=== PATIENT | male | born 1945 | race Caucasian/White ===

== ENCOUNTER 2016-12-25 16:32 | Inpatient (IN) | payer MEDICARE ==
[~2016-12-25 16:32] MED LIST: Sodium Chloride 0.9% 1,000 ML BAG ONE
[2016-12-25 17:21] LABS: #Basophils 0.1 thou/uL (0.0-0.2); #Eosinphils 0.9 thou/uL (0.0-0.7); #Lymphocytes 2.3 thou/uL (1.20-3.40); #Monocytes 0.6 thou/uL (0.11-0.59); #Neutrophils 5.5 thou/uL (1.40-6.50); %Basophils 0.8 % (0.0-1.0); %Eosinophils 9.9 % (0.0-10.0); %Lymphocytes 24.4 % (21.0-51.0); %Monocytes 6.3 % (0.0-10.0); %Neutrophils 58.6 % (42.0-75.0); Hemoglobin 14.6 g/dL (14.0-18.0); Mean Corpuscular HGB CONC 33.9 g/dL (32.0-36.0); Mean Corpuscular Hemoglobin 30.2 pg (27.0-31.0); Mean Corpuscular Volume 88.9 fl (80.0-94.0); Mean Platelet Volume 9.4 fL (7.4-10.4); Platelet Count 196 thou/uL (130-400); RBC Distribution Width 11.1 % (11.5-14.5); Red Blood Cell (RBC) Count 4.82 mill/uL (4.70-6.10); White Blood Cell (WBC) Count 9.3 thou/uL (4.8-10.8)
[2016-12-25 17:29] LABS: Bilirubin Small (Negative); Blood, Urine Trace (Negative); Clarity Clear (Clear); Glucose, Urine (Dipstick) Negative (Negative); Leukocyte Negative (Negative); Nitrite Negative (Negative); Protein, Urine (Dipstick) 30 mg/dL (Neg-Trace); Urobilinogen 0.2 mg/dL (0.2-1.0); pH, Urine 5.5 (5.0-9.0)
[2016-12-25 17:31] LABS: Specific Gravity, Urine 1.028 (1.002-1.036)
[2016-12-25 17:36] LABS: RBC/HPF None Seen HPF (0-3); WBC/HPF None Seen HPF (0-3)
[2016-12-25 17:37] LABS: Bacteria/HPF 1+ HPF (None Seen); Crystals/HPF 1+ AMORPH URATES HPF (Negative)
--- NOTE | 2016-12-25 17:37 | RAD ---
FRONTAL VIEW CHEST 12/25/16 COMPARISON: None available. INDICATION: Difficulty breathing, emergency exam. No lobar consolidation, effusion or pneumothorax. The cardiac silhouette is accentuated by portable technique. IMPRESSION: No focal consolidation. POS: [facility]
[2016-12-25 17:39] LABS: Amphetamine Not Detected (NotDetected); Barbiturates Screen Not Detected (NotDetected); Benzodiazepine Screen Not Detected (NotDetected); Cocaine Metabolite Screen Not Detected (NotDetected); Medtox Control Line Valid? VALID (VALID); Methadone Not Detected (NotDetected); Methamphetamine Not Detected (NotDetected); Opiate Screen Not Detected (NotDetected); Oxycodone Screen Not Detected (NotDetected); Phencyclidine (PCP) Not Detected (NotDetected); THC/Cannabinoid Screen Not Detected (NotDetected); Tricyclic Screen Not Detected (NotDetected)
[2016-12-25 17:45] LABS: ALT (SGPT) 10 U/L (8-55); AST (SGOT) 10 U/L (5-34); Albumin 3.8 g/dL (3.4-4.8); Alkaline Phosphatase 82 U/L (40-150); Anion Gap 16 mmol/L (10-20); BUN (Urea Nitrogen) 13 mg/dL (8.4-25.7); Bilirubin, Total 1.3 mg/dL (0.2-1.2); CK (CPK) 69 U/L (30-200); Calc. Creatinine Clearance 0 mL/min (70-130); Calcium 8.7 mg/dL (7.8-10.44); Carbon Dioxide 27 mmol/L (23-31); Chloride 102 mmol/L (98-107); Estimated GFR-MDRD Greater than 90; Glucose 102 mg/dL (80-115); Protein, Total 6.8 g/dL (5.8-8.1); Sodium 141 mmol/L (136-145)
[2016-12-25 19:57] VITALS: BMI 24.3
[2016-12-25] MEDS ORDERED: Acetaminophen 325 MG TAB PO PRN (20:48)
[2016-12-25] MEDS ORDERED: Ondansetron ODT 4 MG TAB PO PRN (20:48)
[2016-12-26] MEDS: Sodium Chloride 0.9% 1,000 ML IV SCH ×2 (02:40→07:10)
[2016-12-26] MEDS: Levothyroxine Sodium 50 MCG TAB PO SCH (05:58)
[2016-12-26] MEDS ORDERED: ALPRAZolam 0.25 MG TAB PO PRN (08:32)
[2016-12-26] MEDS ORDERED: Sodium Chloride 0.9% 1,000 ML IV SCH (08:38)
[2016-12-26] MEDS ORDERED: Atorvastatin Calcium 10 MG TAB PO SCH ×2 (09:00)
[2016-12-26] MEDS ORDERED: FLU VACC TS2017-18 (>65YR) 0.5 ML SYRINGE IM ONE (09:00)
--- NOTE | 2016-12-26 09:35 | CT ---
CT OF THE BRAIN WITHOUT CONTRAST: COMPARISON: None. HISTORY: Delayed speech and change of mental status. TECHNIQUE: Multiple contiguous axial images were obtained in a CT of the brain without contrast. FINDINGS: There are scattered hypodensities in the subcortical and periventricular white matter, likely second chris to small-vessel ischemic disease. No large confluent infarction is seen. There is no evidence of hydrocephalus, intracranial hemorrhage, or extraaxial fluid collection. The calvarium and overlying soft tissues are unremarkable. The visualized paranasal sinuses and mas toid air cells are well aerated. There is remote dehiscence of the left knee orbital wall. IMPRESSION: No evidence of acute intracranial abnormality. POS: [facility]
[2016-12-26] MEDS: Lantiseptic Ointment 130 GM JAR TOP SCH ×2 (09:38→20:50)
[2016-12-26] MEDS: Escitalopram Oxalate 10 mg Tablet PO SCH (09:39)
[2016-12-26] MEDS: Folic Acid 1 MG TAB PO SCH (09:39)
[2016-12-26] MEDS: Enoxaparin Sodium 30 MG/0.3 ML SYRINGE SC SCH (09:40)
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
[2016-12-26] MEDS ORDERED: Thiamine HCl 200 MG/2 ML VIAL SLOW IVP SCH (10:15)
[2016-12-27] MEDS: Levothyroxine Sodium 50 MCG TAB PO SCH (05:47)
[2016-12-27 05:56] LABS: Anion Gap 11 mmol/L (10-20); BUN (Urea Nitrogen) 12 mg/dL (8.4-25.7); Calc. Creatinine Clearance 80 mL/min (70-130); Calcium 8.3 mg/dL (7.8-10.44); Carbon Dioxide 25 mmol/L (23-31); Cardiac Risk 3.4 (Less than 4.5); Chloride 107 mmol/L (98-107); Cholesterol 109 mg/dl (< 200 Desired); Estimated GFR-MDRD 87; Glucose 77 mg/dL (80-115); HDL Cholesterol 32 mg/dL (>60 Neg Risk); LDL Cholesterol, Calculated 64 mg/dL; Phosphorus 2.8 mg/dL (2.3-4.7); Potassium 3.3 mmol/L (3.5-5.1); Sodium 140 mmol/L (136-145); Triglycerides 66 mg/dL (Less than 150)
[2016-12-27] MEDS ORDERED: Levothyroxine Sodium 50 MCG TAB PO SCH (06:00)
[2016-12-27 06:59] LABS: Bilirubin Negative (Negative); Blood, Urine Small (Negative); Clarity Clear (Clear); Glucose, Urine (Dipstick) Negative (Negative); Leukocyte Negative (Negative); Nitrite Negative (Negative); Protein, Urine (Dipstick) Negative (Neg-Trace); Specific Gravity, Urine 1.025 (1.005-1.030); pH, Urine 5.5 (5.0-9.0)
[2016-12-27 07:03] LABS: Bacteria/HPF Rare-Few HPF (None Seen); RBC/HPF 0-3 HPF (0-3); Squamous Epithelial 0-3 HPF (0-3); WBC/HPF 0-3 HPF (0-3)
[2016-12-27] MEDS: Escitalopram Oxalate 10 mg Tablet PO SCH (07:43)
[2016-12-27] MEDS: Atorvastatin Calcium 10 MG TAB PO SCH (07:44)
[2016-12-27] MEDS: Folic Acid 1 MG TAB PO SCH (07:44)
[2016-12-27] MEDS: Enoxaparin Sodium 30 MG/0.3 ML SYRINGE SC SCH (07:45)
[2016-12-27] MEDS: Lantiseptic Ointment 130 GM JAR TOP SCH ×2 (09:09→20:54)
[2016-12-27] MEDS: Stress 600 With Zinc 1 TAB PO SCH (10:29)
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
[2016-12-27 11:20] LABS: Folate (Folic Acid) 5.6 ng/mL (7.0-31.4)
[2016-12-27] MEDS: ALPRAZolam 0.25 MG TAB PO SCH (20:52)
[2016-12-28] MEDS: Levothyroxine Sodium 50 MCG TAB PO SCH (06:06)
[2016-12-28] MEDS: Atorvastatin Calcium 10 MG TAB PO SCH (08:29)
[2016-12-28] MEDS: Escitalopram Oxalate 10 mg Tablet PO SCH (08:29)
[2016-12-28] MEDS: Lantiseptic Ointment 130 GM JAR TOP SCH ×2 (08:29→20:41)
[2016-12-28] MEDS: Stress 600 With Zinc 1 TAB PO SCH (08:30)
[2016-12-28] MEDS: Folic Acid 1 MG TAB PO SCH (08:30)
[2016-12-28] MEDS: Lisinopril 5 MG TAB PO SCH (08:30)
[2016-12-28] MEDS: ALPRAZolam 0.25 MG TAB PO SCH ×2 (08:30→20:41)
[2016-12-28] MEDS ORDERED: Cyanocobalamin 1000 MCG/ML VIAL IM SCH (09:00)
--- NOTE | 2016-12-28 11:40 | PRG ---
DATE OF SERVICE: 12/28/2016 SUBJECTIVE: The patient said he rested well. He is sitting up in bed and eating his breakfast. Kimi parekh called me yesterday afternoon and said since he has been started on the alprazolam on a schedul ed basis, he has been a lot calmer, lot of his lability has been much settled. He has not had explo sive periods. This morning, he seems very calm and talkative, and appears very content. OBJECTIVE: VITAL SIGNS: His vital signs show temperature 96.6, pulse 67, respirations 20, O2 sat 98% on room a ir, blood pressure 133/71. LUNGS: Clear. HEART: Regular rate. LABORATORY DATA: His B12 level is 221, which is very low normal. His folic acid level is also low at 5.6. ASSESSMENT: 1. Dehydration. A. Resolved as of 12/27/2016. 2. Severe depression, probable psychotic depression. A. Manifest with periods of apathy where he becomes very withdrawn and quits eating, complicate d by periods of agitation. B. Complicated by inability to take care of himself. C. History suggests this has been chronic. D. Improved since he is on a scheduled alprazolam. 3. Episodes of fecal and urinary incontinence. 4. Coronary artery disease. A. The EKG indicates evidence of an old inferior infarction. 5. History of multiple cerebrovascular accidents. A. CT scan done on 12/26/2016 shows no evidence of acute myocardial infarction, but shows evide nce of small vessel disease. 6. Possible underlying seizures. 7. Tobacco abuse. 8. Alcohol abuse. He has been off alcohol for the last at least 3 days. A. Alcohol withdrawal, probably response for a lot of the lability and agitation. B. Improved on a scheduled alprazolam. 9. Generalized weakness. A. Improved. 10. Hypothyroidism. 11. Hypercholesterolemia. A. Controlled. 12. B12 and folate deficiency. PLAN: Overall, the patient looks much better. We will place the patient on B12 1000 mcg IM weekly and then monthly and then in 3 months repeated B12 level. The patient is already on folic acid supp lement. Advance activities as tolerated.
[2016-12-29] MEDS: Levothyroxine Sodium 50 MCG TAB PO SCH (05:18)
[2016-12-29] MEDS: Atorvastatin Calcium 10 MG TAB PO SCH (08:14)
[2016-12-29] MEDS: Stress 600 With Zinc 1 TAB PO SCH (08:15)
[2016-12-29] MEDS: Folic Acid 1 MG TAB PO SCH (08:15)
[2016-12-29] MEDS: ALPRAZolam 0.25 MG TAB PO SCH ×2 (08:15→20:40)
[2016-12-29] MEDS: Lisinopril 5 MG TAB PO SCH (08:15)
[2016-12-29] MEDS: Escitalopram Oxalate 10 mg Tablet PO SCH (08:15)
[2016-12-29] MEDS: Lantiseptic Ointment 130 GM JAR TOP SCH ×2 (08:16→22:25)
[2016-12-29] MEDS ORDERED: Sodium Chloride 0.9% 1,000 ML BAG ONE ×2 (13:32→13:33)
--- NOTE | 2016-12-29 14:27 | PRG ---
DATE OF SERVICE: 12/29/2016 SUBJECTIVE: The patient is sleeping this morning, but easily aroused to an alert state. He has had a good night yesterday and then full day. He had slept a lot during the day. He did take his medi cine, did agree and received his B12 injection. OBJECTIVE: GENERAL: The patient is resting quietly and appears comfortable and in no distress. VITAL SIGNS: Shows a temperature of 97.2, pulse 62, respirations 18, O2 sat 96% on room air, blood pressure 118/58. LUNGS: Clear. HEART: Regular rate. ASSESSMENT: 1. Dehydration. A. Resolved as of 12/27/2016. 2. Severe depression, probable psychotic depression. A. Manifest with periods of apathy where he becomes very withdrawn and quits eating, complicate d by periods of agitation. B. Complicated by inability to take care of himself. C. History suggests this has been chronic. D. Improved on the scheduled alprazolam and Lexapro as of 12/29/2016. 3. Episodes of fecal and urinary incontinence. 4. Coronary artery disease. A. The EKG indicates evidence of an old inferior infarction. B. Asymptomatic as of 12/29/2016. 5. History of multiple cerebrovascular accidents. A. CT scan done on 12/26/2016 shows no evidence of acute myocardial infarction, but shows evide nce of small vessel disease. 6. Possible underlying seizures. A. No seizures during this admission. 7. Tobacco abuse. 8. Alcohol abuse. He has been off alcohol for the last at least 3 days. A. Alcohol withdrawal, probably response for a lot of the lability and agitation. B. Continues to do well on the scheduled alprazolam as of 12/29/2016. 9. Generalized weakness. A. Improved. 10. Hypothyroidism. 11. Hypercholesterolemia. A. Controlled. 12. B12 and folate deficiency. PLAN: Continue present care. Arrangement has been made for the patient to enter [facility] tomorrow, 12/30/2016.
[2016-12-30] MEDS: Levothyroxine Sodium 50 MCG TAB PO SCH (05:56)
[2016-12-30] MEDS: ALPRAZolam 0.25 MG TAB PO SCH (08:38)
[2016-12-30] MEDS: Lisinopril 5 MG TAB PO SCH (08:39)
[2016-12-30] MEDS: Folic Acid 1 MG TAB PO SCH (08:39)
[2016-12-30] MEDS: Escitalopram Oxalate 10 mg Tablet PO SCH (08:39)
[2016-12-30] MEDS: Atorvastatin Calcium 10 MG TAB PO SCH (08:39)
[2016-12-30] MEDS: Stress 600 With Zinc 1 TAB PO SCH (08:40)
[2016-12-30] MEDS: Lantiseptic Ointment 130 GM JAR TOP SCH (08:42)
--- NOTE | 2016-12-30 10:54 | DIS ---
FINAL DIAGNOSES: 1. Dehydration. A. Resolved as of 12/27/2016. 2. Severe depression, probable psychotic depression. A. Manifest periods with apathy and withdrawal and anorexia with periods of agitation. B. Complicated by inability to take care of himself. C. History suggests this has been chronic. D. Improved on the scheduled alprazolam and Lexapro as of 12/29/2016. 3. Episodes of fecal and urinary incontinence. 4. Coronary artery disease. A. The EKG indicates evidence of an old inferior infarction. B. Asymptomatic as of 12/29/2016. 5. Cerebral insufficiency. A. CT scan done on 12/26/2016 shows evidence of small vessel disease, no evidence of acute infarct. 6. History of possible seizures. A. No seizures during this admission. 7. Tobacco abuse. 8. Alcohol abuse. He has been off alcohol for the last at least 3 days. A. Alcohol withdrawal, probably response for a lot of the lability and agitation. B. Continues to do well on the scheduled alprazolam as of 12/30/2016. 9. Generalized weakness. A. Improved. 10. Hypothyroidism. 11. Hypercholesterolemia. A. Controlled. 12. B12 and folate deficiency. SUMMARY: The patient is a 71-year-old who lives with his sister for the last 2-1/2 years. He has a history of cardiovascular disease with history of multiple MIs. Also, according to his sister he has had some previous strokes and some possible seizures. He has hypertension, hypercholesterolemia, a long history of tobacco abuse and alcohol abuse. He lives with his sister. There he has periods where he becomes very withdrawn and anorexic and had periods where he becomes more agitated. He has required supervision with all his instrumental ADLs. The patient's sister called an ambulance to bring him to the emergency room on the evening of the day of admission because he had become very withdrawn, had quit eating and intermittently would have episodes where he would get quite agitated. He had not had anything to drink for 2-3 days. In the emergency room, he appeared withdrawn, but dehydrated and was admitted to the hospital with a diagnosis of dehydration and weakness and level of care beyond what his sister could manage at home. The patient was initially evaluated by myself the morning after his admission. At that time, he was awake, but withdrawn, eventually would answer a few questions, but was very labile, at times would get agitated. He had no focal weakness. Review of his lab work showed that his drug screen was negative. EKG showed evidence of an old inferior RI. CT scan of the brain was done which showed no evidence of acute cerebral infarct or mass. There was evidence of small vessel disease. The patient's B12 was low and folate level low. He had been started on IV fluids, but by the day after his admission he refused to continue the fluids. By this time his dehydration was resolved. It was felt that patient had an underlying severe depression, possible psychotic that apparently had been present for a long time. I also was concerned that a lot of these lability and agitation may be from alcohol withdrawal. HOSPITAL COURSE: The patient was ordered Thiamine IV which he refused. He was placed on thiamine, folic acid and B complex vitamins orally and B12 IM. The patient was placed on Lexapro for the depression and was placed on Xanax 0.25 mg b.i.d. After the addition of Xanax he seemed to be much calmer and much more cooperative. His sister said that his level of care was such that she was having difficulty managing him and arrangements were made for him to enter [facility] where he could continue to receive physical therapy in an effort to try to improve his strength, his gait. At home had been getting around with a walker. It was hoped that with the therapy that his strength would improve and his functional capabilities would improve and eventually be able to return back to his home with his sister. DISPOSITION: DIET: Regular diet, mechanical soft. ACTIVITIES: Ambulate with the use of a walker. We will arrange for PT and OT. MEDICATIONS: Acetaminophen 325 mg 2 every 4 hours as needed, alprazolam 0.25 mg b.i.d., atorvastatin 20 mg daily, Lexapro 20 mg daily, folic acid 1 mg daily , levothyroxine 50 mcg daily, lisinopril 5 mg daily, metoprolol succinate 50 mg daily, B12 complex vitamins daily, pantoprazole 40 mg daily, and thiamine 50 mg daily.Cyanocobalamin 1000mcg IM weekly x 3 then monthly. FOLLOWUP: The patient will be entering [facility]. There, he will continue to receive physical therapy and occupational therapy. FOLLOWUP: The patient will need to be seen in followup in 2 weeks. KAY
[2016-12-30 11:11] VITALS: BP 114/56; TEMP 97.3
== END 2016-12-30 11:50 | DRG 641 ==
LOC: MADERS 16:32 → MADMS 18:04
PROVIDERS: ADMIT Family Medicine; ATTEND Family Medicine
DX: E86.0 Dehydration (principal); F32.3 Major depressive disorder, single episode, severe with psychotic features; F10.239 Alcohol dependence with withdrawal, unspecified; I25.10 Atherosclerotic heart disease of native coronary artery without angina pectoris; R15.9 Full incontinence of feces; R32 Unspecified urinary incontinence; Z86.73 Personal history of transient ischemic attack (TIA), and cerebral infarction without residual deficits; F17.210 Nicotine dependence, cigarettes, uncomplicated; E03.9 Hypothyroidism, unspecified; E78.00 Pure hypercholesterolemia, unspecified; E53.8 Deficiency of other specified B group vitamins; R53.1 Weakness; Z66 Do not resuscitate
CPT/HCPCS: 36415; 51701; 70450; 71010; 80048; 80053; 80061; 80306; 81001; 81003; 81015; 82550; 82607; 82746; 84100; 84443; 85025; 87040; 87086; 93005; 93010; 96360; 96361; G8978-GP-CK; G8979-GP-CI; J1650; J3411; J3420; J7050

== ENCOUNTER 2017-04-29 15:31 | Outpatient (CLI) | payer MEDICARE ==
[2017-04-29 16:04] LABS: Bilirubin Negative (Negative); Blood, Urine Negative (Negative); Glucose, Urine (Dipstick) Negative (Negative); Leukocyte Negative (Negative); Nitrite Negative (Negative); Protein, Urine (Dipstick) Negative (Neg-Trace); Specific Gravity, Urine 1.025 (1.005-1.030); Urobilinogen 0.2 mg/dL (0.2-1.0); pH, Urine 5.5 (5.0-9.0)
[2017-04-29 16:12] LABS: Bacteria/HPF 1+ HPF (None Seen); Clarity Hazy (Clear); RBC/HPF 0-3 HPF (0-3); Squamous Epithelial 0-3 HPF (0-3); WBC/HPF 0-3 HPF (0-3)
== END 2017-04-29 15:32 | disposition home or self-care (01) ==
LOC: MADLAB 15:31
PROVIDERS: ATTEND Family Medicine
DX: R35.0 Frequency of micturition (principal)
CPT/HCPCS: 81001

== ENCOUNTER 2017-12-22 17:18 | Emergency (ER) | payer MEDICARE, OTHER | END 2017-12-22 17:53 | disposition home or self-care (01) | LOC: MADERS 17:18 | DX: I10 Essential (primary) hypertension (principal); I25.10 Atherosclerotic heart disease of native coronary artery without angina pectoris; I25.2 Old myocardial infarction; E03.9 Hypothyroidism, unspecified; F17.210 Nicotine dependence, cigarettes, uncomplicated | CPT/HCPCS: 99283 ==

== ENCOUNTER 2018-04-17 13:27 | Emergency (ER) | payer MEDICARE, OTHER ==
[2018-04-17 13:58] LABS: #Basophils 0.1 thou/uL (0.0-0.2); #Eosinphils 0.6 thou/uL (0.0-0.7); #Lymphocytes 2.3 thou/uL (1.20-3.40); #Monocytes 0.8 thou/uL (0.11-0.59); #Neutrophils 9.7 thou/uL (1.40-6.50); %Basophils 0.6 % (0.0-1.0); %Eosinophils 4.2 % (0.0-10.0); %Lymphocytes 16.8 % (21.0-51.0); %Monocytes 5.8 % (0.0-10.0); %Neutrophils 72.6 % (42.0-75.0); Mean Corpuscular HGB CONC 33.3 g/dL (32.0-36.0); Mean Corpuscular Hemoglobin 28.5 pg (27.0-31.0); Mean Corpuscular Volume 85.8 fL (78.0-98.0); Mean Platelet Volume 9.9 fL (7.4-10.4); Platelet Count 180 thou/uL (130-400); RBC Distribution Width 12.4 % (11.5-14.5); Red Blood Cell (RBC) Count 5.26 mill/uL (4.70-6.10); White Blood Cell (WBC) Count 13.4 thou/uL (4.8-10.8)
[2018-04-17 14:09] LABS: ALT (SGPT) 14 U/L (8-55); AST (SGOT) 12 U/L (5-34); Albumin 4.2 g/dL (3.4-4.8); Alkaline Phosphatase 71 U/L (40-150); Anion Gap 14 mmol/L (10-20); BUN (Urea Nitrogen) 20 mg/dL (8.4-25.7); Bilirubin, Total 0.6 mg/dL (0.2-1.2); Calc. Creatinine Clearance 0 mL/min (70-130); Calcium 9.4 mg/dL (7.8-10.44); Carbon Dioxide 28 mmol/L (23-31); Chloride 101 mmol/L (98-107); Estimated GFR-MDRD 72; Globulin 3.2 g/dL (2.4-3.5); Glucose 99 mg/dL (83-110); Potassium 3.9 mmol/L (3.5-5.1); Protein, Total 7.4 g/dL (5.8-8.1); Sodium 139 mmol/L (136-145)
--- NOTE | 2018-04-17 15:22 | RAD ---
CHEST 1 VIEW: Date: 04/17/18 HISTORY: Chest pain for 1 week with cough and congestion. COMPARISON: 12/25/16. FINDINGS: Heart size is normal. The lungs are clear. IMPRESSION: No acute intrathoracic disease. Atherosclerosis of aorta. Stable from prior study. POS: [facility]
== END 2018-04-17 14:40 | disposition home or self-care (01) ==
LOC: MADERS 13:27
DX: J20.9 Acute bronchitis, unspecified (principal); Z71.6 Tobacco abuse counseling; I25.2 Old myocardial infarction; I25.10 Atherosclerotic heart disease of native coronary artery without angina pectoris; E03.9 Hypothyroidism, unspecified; I10 Essential (primary) hypertension; F17.210 Nicotine dependence, cigarettes, uncomplicated; Z79.82 Long term (current) use of aspirin; Z79.899 Other long term (current) drug therapy
CPT/HCPCS: 36415; 71045; 80053; 83880; 84484; 85025; 87804; 93005; 99406

== ENCOUNTER 2018-05-14 05:31 | Emergency (ER) | payer MEDICARE, OTHER ==
[2018-05-14] MEDS ORDERED: Sodium Chloride 0.9% 1,000 ML ONE (06:07)
[2018-05-14 06:32] LABS: Bilirubin Small (Negative); Blood, Urine Negative (Negative); Clarity Clear (Clear); Glucose, Urine (Dipstick) Negative (Negative); Leukocyte Negative (Negative); Nitrite Negative (Negative); Protein, Urine (Dipstick) Negative (Neg-Trace); pH, Urine 5.5 (5.0-9.0)
[2018-05-14 06:45] LABS: #Basophils 0.1 thou/uL (0.0-0.2); #Lymphocytes 2.9 thou/uL (1.20-3.40); #Monocytes 0.6 thou/uL (0.11-0.59); #Neutrophils 6.8 thou/uL (1.40-6.50); %Basophils 0.9 % (0.0-1.0); %Lymphocytes 25.5 % (21.0-51.0); %Monocytes 5.1 % (0.0-10.0); %Neutrophils 59.5 % (42.0-75.0); Hemoglobin 14.4 g/dL (14.0-18.0); Mean Corpuscular HGB CONC 32.4 g/dL (32.0-36.0); Mean Corpuscular Hemoglobin 27.7 pg (27.0-31.0); Mean Corpuscular Volume 85.6 fL (78.0-98.0); Mean Platelet Volume 9.1 fL (7.4-10.4); Platelet Count 135 thou/uL (130-400); RBC Distribution Width 13.1 % (11.5-14.5); Red Blood Cell (RBC) Count 5.19 mill/uL (4.70-6.10); White Blood Cell (WBC) Count 11.4 thou/uL (4.8-10.8)
[2018-05-14 06:47] LABS: ALT (SGPT) 10 U/L (8-55); AST (SGOT) 11 U/L (5-34); Albumin 3.7 g/dL (3.4-4.8); Alkaline Phosphatase 61 U/L (40-150); Anion Gap 14 mmol/L (10-20); BUN (Urea Nitrogen) 16 mg/dL (8.4-25.7); Bilirubin, Total 0.8 mg/dL (0.2-1.2); Calc. Creatinine Clearance 0 mL/min (70-130); Calcium 8.7 mg/dL (7.8-10.44); Carbon Dioxide 24 mmol/L (23-31); Chloride 107 mmol/L (98-107); Estimated GFR-MDRD 82; Globulin 2.9 g/dL (2.4-3.5); Glucose 110 mg/dL (83-110); Potassium 3.9 mmol/L (3.5-5.1); Protein, Total 6.6 g/dL (5.8-8.1); Sodium 141 mmol/L (136-145)
[2018-05-14] MEDS ORDERED: Sulfameth/Trimethoprim DS 800-160mg TAB ONE (07:07)
[2018-05-14] MEDS ORDERED: Ibuprofen 800 MG TAB ONE (07:07)
== END 2018-05-14 08:30 | disposition home or self-care (01) ==
LOC: MADERS 05:31
DX: E86.0 Dehydration (principal); F29 Unspecified psychosis not due to a substance or known physiological condition; I25.2 Old myocardial infarction; E03.9 Hypothyroidism, unspecified; I10 Essential (primary) hypertension; Z79.899 Other long term (current) drug therapy; F17.210 Nicotine dependence, cigarettes, uncomplicated; Z79.82 Long term (current) use of aspirin
CPT/HCPCS: 80053; 81003; 84443; 85025; 96360; 96361; J7050